=== PATIENT | female | born 1975 | race Caucasian/White ===

== ENCOUNTER 2023-03-02 09:17 | Emergency (ER) | payer SELFPAY ==
[2023-03-02 11:23] LABS: ESTIMATED GFR 79 mL/min (>60)
== END 2023-03-02 14:00 | disposition home or self-care (01) ==
LOC: JD.ED 09:17
DX: L51.9 Erythema multiforme, unspecified (principal); F17.210 Nicotine dependence, cigarettes, uncomplicated; Z86.16 Personal history of COVID-19; Z79.899 Other long term (current) drug therapy
CPT/HCPCS: 36415; 80053; 85007; 85027; 86140; 99283

== ENCOUNTER 2023-03-23 21:32 | Emergency (ER) | payer SELFPAY ==
[2023-03-23 21:47] LABS: BASOPHILS ABSOLUTE AUTO 0.02 K/mm3 (0.01-0.08); BASOPHILS PERCENT AUTO 0.4 % (0.1-1.2); EOSINOPHILS ABSOLUTE AUTO 0.11 K/mm3 (0.04-0.36); EOSINOPHILS PERCENT AUTO 2.1 (0.7-5.8); HEMATOCRIT 37.9 % (34.1-44.9); HEMOGLOBIN 12.9 gm/dl (11.2-15.7); LYMPHOCYTES ABSOLUTE AUTO 1.19 K/mm3 (1.18-3.74); LYMPHOCYTES PERCENT AUTO 22.8 % (19.3-51.7); MEAN CORPUSCULAR HEMOGLOBIN 30.8 pg (25.6-32.2); MEAN CORPUSCULAR VOLUME 90.5 fl (79.4-94.8); MEAN PLATELET VOLUME 9.9 fl (9.4-12.3); MONOCYTES ABSOLUTE AUTO 0.52 K/mm3 (0.24-0.36); NEUTROPHILS ABSOLUTE AUTO 3.38 K/mm3 (1.56-6.13); NEUTROPHILS PERCENT AUTO 64.7 % (34.0-71.1); PLATELET COUNT,PLT 246 K/mm3 (182-369); RED BLOOD CELL COUNT 4.19 M/mm3 (3.98-5.22); WHITE BLOOD CELL COUNT,WBC 5.22 K/mm3 (3.98-10.04)
[2023-03-23 22:09] LABS: A/G RATIO 1.3 (1-2); ALBUMIN 3.8 g/dl (3.4-5.0); ANION GAP 11.5 (5-15); BILIRUBIN TOTAL 1.5 mg/dL (0.2-1.0); BUN/CREATININE RATIO 13.6 (14-18); CALCIUM 8.9 mg/dL (8.5-10.1); CREATININE 1.1 mg/dL (0.55-1.02); EST CRCL DRUG DOSING (CG) 63.09 mL/min; POTASSIUM,K 3.5 mEq/L (3.5-5.1); PROTEIN TOTAL,TP 6.7 g/dl (6.4-8.2)
[2023-03-23 23:24] LABS: APPEARANCE,URINE CLEAR (Clear); BILIRUBIN,URINE 1+ (Negative); COLOR,URINE YELLOW (Yellow); GLUCOSE,URINE NEGATIVE (Negative); KETONES,URINE NEGATIVE (Negative); LEUKOCYTE ESTERASE,URINE NEGATIVE (Negative); NITRITE,URINE NEGATIVE (Negative); OCCULT BLOOD,URINE NEGATIVE (Negative); PH,URINE 5.5 (5.0-8.0); PROTEIN,URINE 2+ (Negative); UROBILINOGEN,URINE 0.2 (0.2-1.0)
[2023-03-23 23:35] LABS: BARBITURATE SCREEN,URINE NEGATIVE (CUTOFF=200); BENZODIAZEPINES SCREEN,URINE PRESUMPTIVE POSITIVE (CUTOFF=150); BUPRENORPHINE SCREEN,URINE NEGATIVE (CUTOFF=10); METHADONE SCREEN, URINE NEGATIVE (CUTOFF=200); METHAMPHETAMINES SCREEN, URINE PRESUMPTIVE POSITIVE (CUTOFF=500); OXYCODONE SCREEN,URINE NEGATIVE (CUT0FF=100); PROPOXYPHENE SCREEN,URINE NEGATIVE (CUTOFF=300); THC SCREEN,URINE 20 NG/ML NEGATIVE (CUTOFF=50)
[2023-03-23 23:39] LABS: AMPHETAMINES SCREEN, URINE PRESUMPTIVE POSITIVE (CUTOFF=500)
[2023-03-23 23:43] LABS: BACTERIA,URINE FEW /hpf (FEW); MUCUS,URINE MANY /hpf (FEW); RBC,URINE 0-5 /hpf (0-5); SQUAMOUS EPITHELIAL CELLS,UR 0-5 /hpf (0-5); WBC,URINE 0-5 /hpf (0-5)
== END 2023-03-24 01:31 | disposition home or self-care (01) ==
LOC: JD.ED 21:32
DX: R09.2 Respiratory arrest (principal); F15.90 Other stimulant use, unspecified, uncomplicated; Z86.16 Personal history of COVID-19
CPT/HCPCS: 36415; 71045; 71045-26; 80053; 80306; 80307; 81001; 82947; 85025; 85379; 93005; 93010; 99285

== ENCOUNTER 2023-03-25 19:13 | Emergency (ER) | payer SELFPAY | END 2023-03-25 19:46 | disposition home or self-care (01) | LOC: JD.ED 19:13 | DX: T16.2XXA Foreign body in left ear, initial encounter (principal); Z86.16 Personal history of COVID-19 | CPT/HCPCS: 69200; 99282 ==

== ENCOUNTER 2025-07-23 15:04 | Emergency (ER) | payer SELFPAY ==
[2025-07-23 15:28] LABS: BASOPHILS ABSOLUTE AUTO 0.0 K/mm3 (0.0-0.2); BASOPHILS PERCENT AUTO 0.5 % (0.0-1.0); EOSINOPHILS ABSOLUTE AUTO 0.2 K/mm3 (0.0-0.4); EOSINOPHILS PERCENT AUTO 2.3 % (0.0-6.0); IMMATURE GRAN ABSOLUTE AUTO 0.01 K/mm3 (0.00-0.05); IMMATURE GRAN PERCENT AUTO 0.1 % (0.0-0.4); LYMPHOCYTES ABSOLUTE AUTO 1.7 K/mm3 (1.0-4.8); LYMPHOCYTES PERCENT AUTO 22.2 % (24.0-44.0); MEAN PLATELET VOLUME 10.5 fl (9.4-12.3); MONOCYTES ABSOLUTE AUTO 0.6 K/mm3 (0.0-0.8); MONOCYTES PERCENT AUTO 7.3 % (0.0-8.0); NEUTROPHILS ABSOLUTE AUTO 5.2 K/mm3 (1.8-7.7); NEUTROPHILS PERCENT AUTO 67.6 % (41.0-71.0); NRBC ABSOLUTE 0.00 (0.00-0.02); NRBC PERCENT 0.0 % (0.0-0.2); PLATELET COUNT,PLT 216 K/mm3 (150-400); RED BLOOD CELL COUNT 4.22 M/mm3 (4.10-5.30); WHITE BLOOD CELL COUNT,WBC 7.72 K/mm3 (3.9-11.3)
[2025-07-23] MEDS: Diphtheria,Pertussis(Acell),Tetanus Vaccine 0.5 ML Syringe IM ONE (15:45)
[2025-07-23] MEDS: Sodium Chloride 0.9% 10 ML Syringe FLUSH PRN (15:45)
[2025-07-23 15:56] LABS: A/G RATIO 1.5 (1-2); ALANINE AMINOTRANSFERASE,ALT 20 U/L (14-59); ASPARTATE AMNIOTRANSFERASE,AST 18 U/L (15-37); BILIRUBIN TOTAL 0.8 mg/dL (0.2-1.0); BLOOD UREA NITROGEN,BUN 18 mg/dL (7-18); CARBON DIOXIDE,CO2 30 mEq/L (21-32); CHLORIDE,CL 106 mEq/L (98-107); CREATININE 1.0 mg/dL (0.55-1.02); ESTIMATED GFR 69 mL/min (>60); GLUCOSE RANDOM 105 mg/dL (70-99); POTASSIUM,K 3.9 mEq/L (3.5-5.1); PROTEIN TOTAL,TP 6.6 g/dl (6.4-8.2); SODIUM,NA 142 mEq/L (136-145); TROPONIN I HIGH SENSITIVITY 6 pg/mL (<=51)
[2025-07-23 16:02] LABS: ETHANOL BLOOD MEDICAL 0.00 gm% (0.00)
[2025-07-23] MEDS: Sodium Chloride 0.9% 10 ML Syringe FLUSH ONE (16:14)
[2025-07-23] MEDS: Iopamidol 755 MG/ML 50 ML Bottle IVPUSH ONE (16:14)
== END 2025-07-23 20:30 | disposition home or self-care (01) ==
LOC: JD.ED 15:04
DX: S92.142A Displaced dome fracture of left talus, initial encounter for closed fracture (principal); M25.512 Pain in left shoulder; Z86.16 Personal history of COVID-19; Z90.710 Acquired absence of both cervix and uterus; Z79.899 Other long term (current) drug therapy; V20.99XA Unspecified rider of other motorcycle injured in collision with pedestrian or animal in traffic accident, initial encounter; Z23 Encounter for immunization
CPT/HCPCS: 36415; 70450; 71045; 71260; 72125; 72170; 73030; 73060; 73090; 73590; 73630; 74177; 80053; 80307; 83690; 84484; 84703; 85025; 90471; 90715; 93005; 96361; 96374; 96376; 99285; J1171; J7030; Q9967; 93010; 99284